=== PATIENT | male | born 1985 | race Two or more races ===

== ENCOUNTER 2021-10-19 22:23 | Emergency (ER) | payer OTHER ==
[~2021-10-19] VITALS: Ht 175.3 cm; Wt 79.5 kg
[2021-10-19] MEDS ORDERED: diphenhydrAMINE 50 mg/ml inj IV ONE (23:50)
[2021-10-19] MEDS ORDERED: ketorolac trometh. 30mg/ml inj. IV ONE (23:50)
[2021-10-19] MEDS ORDERED: normal saline 1000ml 1,000 ML IV ONE (23:50)
[2021-10-19] MEDS ORDERED: metoclopramide 5 mg/ml inj IV ONE (23:50)
[2021-10-20 01:58] VITALS: BP 118/78
== END 2021-10-20 01:52 | disposition home or self-care (01) ==
LOC: ER 22:24
DX: G43.909 Migraine, unspecified, not intractable, without status migrainosus (principal); R11.10 Vomiting, unspecified
CPT/HCPCS: 96361; 96374; 96375; 99284; J1200; J1885; J2765; J7030